=== PATIENT | female | born 1960 | race Caucasian/White ===

== ENCOUNTER → 2020-12-25 14:06 | Outpatient (BNVA) | payer OTHER, SELFPAY | PROVIDERS: Visit Provider Internal Medicine | DX: M65.4 Radial styloid tenosynovitis [de Quervain] (principal); S63.501A Unspecified sprain of right wrist, initial encounter; X50.0XXA Overexertion from strenuous movement or load, initial encounter; X50.3XXA Overexertion from repetitive movements, initial encounter | CPT/HCPCS: 29125; 73110; 99203 ==

== ENCOUNTER → 2020-12-28 15:11 | Outpatient (BNVA) | payer OTHER, SELFPAY | PROVIDERS: Visit Provider Internal Medicine | DX: M77.8 Other enthesopathies, not elsewhere classified (principal) | CPT/HCPCS: 29125; 99214 ==

== ENCOUNTER → 2021-01-01 10:52 | Outpatient (BNVA) | payer OTHER, SELFPAY | PROVIDERS: Visit Provider Physician Assistant Medical | DX: S63.391A Traumatic rupture of other ligament of right wrist, initial encounter (principal); Y04.0XXA Assault by unarmed brawl or fight, initial encounter | CPT/HCPCS: 99213 ==

== ENCOUNTER → 2021-01-08 10:37 | Outpatient (BNVA) | payer OTHER, SELFPAY | PROVIDERS: PCP Nurse Practitioner Family; Visit Provider Physician Assistant Medical | DX: M67.833 Other specified disorders of tendon, right wrist (principal) | CPT/HCPCS: 99213 ==

== ENCOUNTER 2021-01-10 11:00 | Outpatient (RCR) | payer OTHER, BC, SELFPAY ==
--- NOTE | 2021-01-04 16:05 | MHC.OT.OEV ---
[address] [phone] F: [phone] Occupational Therapy Evaluation Diagnosis: Right wrist tendonitis, traumatic. Date of Onset: 12/24/20 Date of Surgery: Attending Provider: Rashida quintana Prescribed Treatment: Eval and treat MD Follow Up Appointment: History of Current Condition: Pt reports a right wrist lifting a mop bucket. Seen in the [facility] the next day. Xray neg for acute fracture of dislocations. 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 To a 1/2 cast on 12/28/20 due to inc in hand edema. Pt now wearing her pre neil splint. 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 21 yo daughter home Multi of pets Current Level of Function and Occupation Self Care, Employment, Leisure: Indep with all ADL . Unable to wash her back with right hand Out of work since injury Sleep: Mild difficulty sleeping Driving: WNL Vision: Balance: Pain Assessment Pain Score: 4 Pain Scale Used: Numeric (0 - 10) Pain Location and Description: 0-4 base of right thumb and area of FCR Achy Aggravating Factors: Right hand use Alleviating Factors: Avoiding use Skin and Soft Tissue Assessment Skin and Soft Tissue: Comments: No abnormalities noted Nerve assessment Ulnar Nerve: Median Nerve: Radial Nerve: Comments: Sensory Assessment Temperature: Light Touch: Proprioception: Vibration: Comments: Edema Assessment Upper Extremity: Right Impaired Lower Extremity: Comments: Wrist circumference... 17 cm...right ...............left 16.5 cm Dexterity Assessment Dexterity: WNL Comments: Special Tests Comments: AROM(PROM) Strength Cervical Cervical Flexion: Cervical Extension: Cervical Lateral Flexion: Cervical Rotation: Comments: Shoulder Flexion: Extension: Abduction: Internal Rotation: External Rotation: Comments: Flexion: Extension: Abduction: Internal Rotation: External Rotation: Comments: Elbow Flexion: Extension: Pronation: Supination: Comments: Flexion: Extension: Pronation: Supination: Comments: Wrist Flexion: Right 35 deg..........Left 65 deg Extension: 45 deg 75 deg Ulnar Deviation: 25 deg 30 deg Radial Deviation: 10 deg 15 deg Comments: Flexion: Extension: Ulnar Deviation: Radial Deviation: Comments: Thumb Thumb CMC Flexion: Thumb MCP Flexion: Thumb IP Flexion: Radial Abduction: Palmar Abduction: Cut Off (Kapandji 0-10): Comments: WNL Digits Index MCP: PIP: DIP: Long MCP: PIP: DIP: Ring MCP: PIP: DIP: Small MCP: PIP: DIP: Comments: Gross Grasp: Lateral Pinch: Two-Point Pinch: Three-Jaw Monty: Comments: Patient Education Primary Language: [employer] Required: No Current Knowledge: Understands information with skills for self-management Teaching Method: Demonstration Verbal Education Needs Identified on Evaluation: ADL's Disease Information Exercise Pain How did patient/family demonstrate learning? Patient demonstrates Patient verbalizes Barriers to Learning: None Readiness for Learning: Accepting Who was educated? Patient Comments: Plan of Care Assessment: Pt is a 60 yo female had a recent right wrist strain injury lifting a mop bucket at work with underlying right CMC jt OA Today she presents with impairments in pain, mild edema, wrist stiffness and dec strength due to pain. 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
--- NOTE | 2021-01-10 11:50 | MHC.OT.DC ---
[address] [phone] F: [phone] Occupational Therapy Discharge Note Provider: Rashida quintana Diagnosis: Right wrist tendonitis, traumatic. Date of Surgery: Date of Evaluation: 01/04/21 Date of Discharge: 01/10/21 Treatments to Date: 3 Cancellations to Date: 0 No Shows to Date: 0 Discharge Status: Achieved Goals Improved Function Independent with HEP Discharge Summary: Pain,ROM , strength and function all improved. Pt is with full use of her right UE. Some wrist stiffness possibly due to old wrist fracture. Goals met. Pt should be able to return to work without difficulty Electronically Signed By: Silva Mancuso OT CHT CLT Reviewed/agree with student documentation: N/A Therapist: Please Sign and return to therapist, thank you for your referral.
== END 2021-01-10 11:51 | disposition other institution (70) ==
LOC: HO.OT 11:00
PROVIDERS: PCP Nurse Practitioner Family; Visit Provider Physician Assistant Medical
DX: M77.8 Other enthesopathies, not elsewhere classified (principal)
CPT/HCPCS: 97110; 97165

== ENCOUNTER → 2021-01-17 08:04 | Outpatient (BNVA) | payer OTHER, SELFPAY | PROVIDERS: PCP Nurse Practitioner Family; Visit Provider Physician Assistant Medical | DX: M67.833 Other specified disorders of tendon, right wrist (principal) | CPT/HCPCS: 99213 ==